=== PATIENT | female | born 1950 | race Caucasian/White ===

== ENCOUNTER → 2020-04-19 | Outpatient (CLI) | payer MEDICARE, OTHER ==
[2020-04-19 15:58] LABS: HCT 39.7 % (34.0-46.0); HGB 13.4 gm/dL (11.4-16.0); MCH 29.8 pg (25.0-35.0); MCHC 33.7 g/dL (31.0-37.0); MCV 88.4 fL (80.0-100.0); Mean Platelet Volume 7.5; Platelet Count 249 k/uL (150-450); RDW 12.8 % (11.5-15.5); WBC 9.5 k/uL (3.8-10.6)
[2020-04-20 03:53] LABS: African American GFR (CKD) 66.1 (60.0-200.0); Anion Gap 14.5 mmol/L (4.00-12.00); Carbon Dioxide 20.5 mmol/L (21.6-31.8); Potassium 4.8 mmol/L (3.5-5.5)
== END | disposition home or self-care (01) ==
LOC: LABWHC1 14:43
PROVIDERS: ATTEND Internal Medicine Interventional Cardiology
DX: Z01.818 Encounter for other preprocedural examination (principal); R94.39 Abnormal result of other cardiovascular function study
CPT/HCPCS: 36415; 80051; 82565; 84520; 85027

== ENCOUNTER 2020-04-21 07:55 | Day surgery (SDC) | payer MEDICARE ==
[2020-04-19 10:11] VITALS: BMI 32.6
[~2020-04-21 07:55] MED LIST: ALPRAZolam 0.25 MG TAB PO PRN; ALPRAZolam 0.5 MG TAB PO PRN; ASPIRIN 325 MG TAB PO STA; NITROGLYCERIN SL TABS 0.4 MG TAB SUBLINGUAL PRN; SODIUM CHLORIDE 0.9% 1,000 ML in EMPTY BAG 1 BAG IV ONE
[2020-04-21 08:23] LABS: Glucose,Whole Blood 148 mg/dL (75-99)
[2020-04-21 08:25] VITALS: RESP 16; TEMP 98.1
[2020-04-21] MEDS ORDERED: SODIUM CHLORIDE 0.9% 1,000 ML IV ONE (08:26)
[2020-04-21] MEDS ORDERED: fentaNYL (PF) 50 MCG/ML 2 ML AMP IVP ONE (09:11)
[2020-04-21] MEDS ORDERED: LIDOCAINE 1% INJ 10MG/ML (20 ML MDV) SQ ONE (09:17)
[2020-04-21] MEDS ORDERED: MIDAZOLAM 2 MG/2 ML VIAL IVP ONE (09:19)
[2020-04-21] MEDS ORDERED: VERAPAMIL SYRINGE (5 MG/10 ML) INTRAARTER ONE (09:19)
[2020-04-21] MEDS ORDERED: HEPARIN SODIUM 1,000 UN/ML (10ML VL) IV ONE (09:24)
[2020-04-21] MEDS ORDERED: IOPAMIDOL-370 125ML BTL INJ ONE (09:32)
[2020-04-21] MEDS ORDERED: RX INFO: IV CONTRAST WAS GIVEN 1 EACH MISC MISCELLANE PRN (09:39)
[2020-04-21] MEDS ORDERED: SODIUM CHLORIDE 0.9% 1,000 ML IV SCH (09:45)
--- NOTE | 2020-04-21 09:55 | CC ---
CARDIAC CATHETERIZATION REPORT Mrs. Mullen is a 70-year-old female with known history of hypertension, hyperlipidemia, and diabetes mellitus who has been complaining of episode of chest discomfort. She underwent myocardial perfusion imaging that revealed evidence of inducible ischemia. In view of her persistent symptoms and the results of her stress test, recommendation made regarding cardiac catheterization. The procedures, risks, and complication were discussed with the patient who is in full understanding and agreement. PROCEDURE: Patient was brought to [facility] in a fasting semi-sedated state after receiving fentanyl and Benadryl and achieving moderate conscious sedated state. Using Xylocaine anesthesia and Seldinger technique, a 6-Cypriot sheath was introduced in the right radial artery. Selective right and left coronary angiography performed using 5-Cypriot 3.5 bend, right and left Candi catheter, multiple views of the coronary artery including hemiaxial views obtained. Following that, a 5-Cypriot tight pigtail catheter was in the left ventricle and pressures were calculated. Following that, catheter and sheath were removed. Hemostasis was obtained with deployment of a TR band. There was no immediate complication. Patient is returned to her room in stable condition. Of note, the patient received a total of 4500 units of intravenous heparin as well as intra-arterial verapamil. FLUOROSCOPY: There was calcification involving the right coronary artery and the left anterior descending coronary artery. LEFT MAIN: This is a large-sized vessel, bifurcating into left circumflex, left anterior descending artery left main coronary artery has no evidence of high-grade stenosis. LEFT ANTERIOR DESCENDING ARTERY: This vessel is large caliber, reaching toward the apex with a wraparound apex segment giving rise to a large diagonal branch. The left anterior descending artery proximally is aneurysmal and calcified, but has no evidence of high-grade stenosis. LEFT CIRCUMFLEX: This is a nondominant vessel. Large, giving rise to 2 obtuse marginal branches. The second one is large in caliber. The left circumflex proximally has a 10% to 20% plaque. The rest of the vessel has no high-grade stenosis. RIGHT CORONARY ARTERY: This is a calcified vessel, bifurcating distally into PDA and posterolateral segment and branches. The right coronary artery has mild intimal disease proximally of 10% to 20% without any evidence of high-grade stenosis. LEFT VENTRICULOGRAM: Left ventriculogram was not performed. HEMODYNAMICS: There was no gradient across the aortic valve. The left ventricular end- diastolic pressure was 12-14 mmHg. CONCLUSION: 1. Calcified LAD in the right coronary artery. 2. Aneurysmal formation of the proximal LAD. 3. Mild triple-vessel coronary artery disease. RECOMMENDATION: In view of finding anatomy, I recommend continue medical therapy with aggressive risk modifications being initiated. Those findings and recommendation were discussed with the patient and her family who are under full understanding and agreement. Duration in the sedation is 14 minutes. MMODL / IJN: [id number] /
[2020-04-21 14:36] VITALS: BP 111/69; PULSE 78
[2020-04-21] MEDS ORDERED: ATORVASTATIN 10 MG TAB PO SCH (21:00)
[2020-04-21] MEDS ORDERED: lisinopriL 5 MG TAB PO SCH (21:00)
[2020-04-22] MEDS ORDERED: LINAGLIPTIN 5 MG TABLET PO SCH (09:00)
[2020-04-22] MEDS ORDERED: ASPIRIN 81 MG PO SCH (09:00)
== END 2020-04-21 14:33 | disposition home or self-care (01) ==
LOC: CATHCVL 07:55
PROVIDERS: ATTEND Internal Medicine Interventional Cardiology
DX: I25.10 Atherosclerotic heart disease of native coronary artery without angina pectoris (principal); I25.84 Coronary atherosclerosis due to calcified coronary lesion; I25.41 Coronary artery aneurysm; R94.39 Abnormal result of other cardiovascular function study; E78.00 Pure hypercholesterolemia, unspecified; E78.2 Mixed hyperlipidemia; I10 Essential (primary) hypertension; E11.9 Type 2 diabetes mellitus without complications; Z82.49 Family history of ischemic heart disease and other diseases of the circulatory system; Z98.890 Other specified postprocedural states; Z82.3 Family history of stroke; Z79.84 Long term (current) use of oral hypoglycemic drugs; Z79.82 Long term (current) use of aspirin; Z79.899 Other long term (current) drug therapy; Z88.0 Allergy status to penicillin
CPT/HCPCS: 93458; C1769; C1894; J2250; J2001; J3010; J1644; Q9967